=== PATIENT | female | born 1965 | race Caucasian/White ===

== ENCOUNTER 2017-04-10 15:28 | Emergency (ER) | payer OTHER ==
[~2017-04-10] VITALS: Ht 162.6 cm; Wt 71.8 kg
[2017-04-10 15:34] VITALS: TEMP 36.8; Ht 162.6 cm; Wt 71.8 kg
[2017-04-10 15:52] VITALS: O2SAT 97
--- NOTE | 2017-04-10 15:56 | EMERGENCY ROOM VISIT NOTE ---
History Report prepared by Paras: Nicol Almaguer Under the Supervision of: Dr. Nicolasa Pierre D.O. First contact with patient: 15:46 Chief Complaint: TACHYCARDIA Stated Complaint: TACHYCARDIA, HBP, HIGH HEART RATE Nursing Triage Summary: Pt reports high blood pressure and tachycardia since this morning. Pt has a history of tachycardia. Denies chest pain. SOB. Pt takes Cozaar History of Present Illness The patient is a 51 year old female who presents to the Emergency Room with complaints of resolved tachycardia beginning this morning. The patient states that this morning she began experiencing tachycardia and hypertension. The patient also experienced shortness of breath. She tried to get these symptoms under control with deep relax breathing. She notes that she takes Cozaar and did take it this morning. Her heart rate was 143 and her blood pressure was 220/ 100 before going to [facility] At [email or web address] her heart rate and blood pressure were still elevated. She was referred to ED. The patient has chronic itchy rash for the past few years. Source of History: patient Onset: this morning Position: other (global) Quality: other (tachycardia) Timing: resolved Associated Symptoms: + SOB, + rash Note: The patient has elevated heart rate. Review of Systems See HPI for pertinent positives & negatives. A total of 10 systems reviewed and were otherwise negative. Past Medical & Surgical Medical Problems: (1) Hypertension Family History Patient reports no known family medical history. Social History Smoking Status: Current Every Day Smoker Marital Status: Housing Status: lives with family Occupation Status: employed Current/Historical Medications Scheduled Fluoxetine (Prozac), 20 MG PO DAILY Guanfacine Hcl (Tenex), 1 MG PO DAILY Losartan Potassium (Cozaar), 25 MG PO DAILY Metformin Hcl (Glucophage), 500 MG PO BID Physical Exam Vital Signs Date Time Temp Pulse Resp B/P Pulse Ox O2 Delivery O2 Flow Rate FiO2 04/10/17 17:26 88 16 142/86 96 04/10/17 17:14 96 04/10/17 16:55 97 20 143/89 96 Room Air 04/10/17 15:52 97 Room Air 04/10/17 15:52 97 Room Air 04/10/17 15:36 96 Room Air 04/10/17 15:34 36.8 108 18 154/80 96 Room Air Physical Exam HEENT: Head - normocephalic and atraumatic Pupils are equal, round, and reactive to light. Extraocular eye muscles are intact, and sclera are anicteric. Nose - moist nasal mucosa without discharge. Mouth - moist buccal mucosa. Oropharynx is nonerythematous and there is no tonsillar exudate or edema noted. Neck: Supple; no JVD, nuchal rigidity, cervical lymphadenopathy, or auscultated bruits. Heart: Regular rate and rhythm. There is a normal S1 and S2 with no murmurs, clicks, or gallops appreciated. Lungs: Clear to auscultation bilaterally with no wheezes, rales, or rhonchi. Abdomen: Soft, completely nontender, nondistended, with good bowel sounds. There are no palpable pulsatile masses or hepatosplenomegaly. There is no guarding, rigidity, or rebound noted. Extremities: No evidence of cyanosis, clubbing, or edema. There are easily palpable peripheral pulses. Skin: warm and dry with good turgor. Papular lesions on extremities. Medical Decision & Procedures ER Provider Diagnostic Interpretation: X-ray results as stated below per interpretation by me and the radiologist: CHEST ONE VIEW PORTABLE CLINICAL HISTORY: eval for tachycardia cardiac arrhythmia COMPARISON STUDY: No previous studies for comparison. FINDINGS: The bones soft tissues and hemidiaphragms are normal. The cardiomediastinal silhouette is normal. The lungs are clear. The pulmonary vasculature is normal. IMPRESSION: Negative chest. Electronically signed by: Chaparro Cuellar M.D. 04/10/2017 4:18 PM Dictated Date/Time: 04/10/2017 4:17 PM Laboratory Results 04/10/17 16:08 04/10/17 16:08 Test 04/10/17 16:08 Red Blood Count 4.60 M/uL (4.2-5.4) Mean Corpuscular Volume 89.3 fL (80-100) Mean Corpuscular Hemoglobin 30.7 pg (25-34) Mean Corpuscular Hemoglobin Concent 34.3 g/dl (32-36) RDW Standard Deviation 41.6 fL (36.4-46.3) RDW Coefficient of Variation 12.8 % (11.5-14.5) Mean Platelet Volume 11.2 fL (7.4-10.4) Anion Gap 9.0 mmol/L (3-11) Est Creatinine Clear Calc Drug Dose 81.0 ml/min Estimated GFR () 99.8 Estimated GFR (Non- 86.1 BUN/Creatinine Ratio 14.4 (10-20) Calcium Level 8.6 mg/dl (8.5-10.1) Total Bilirubin 0.2 mg/dl (0.2-1) Aspartate Amino Transf (AST/SGOT) 12 U/L (15-37) Alanine Aminotransferase (ALT/SGPT) 27 U/L (12-78) Alkaline Phosphatase 92 U/L (45-117) Total Creatine Kinase 66 U/L (26-192) Creatine Kinase MB 1.0 ng/ml (0.5-3.6) Creatine Kinase MB Ratio 1.5 (0-3.0) Troponin I < 0.015 ng/ml (0-0.045) Total Protein 7.2 gm/dl (6.4-8.2) Albumin 3.6 gm/dl (3.4-5.0) Globulin 3.6 gm/dl (2.5-4.0) Albumin/Globulin Ratio 1.0 (0.9-2) Thyroid Stimulating Hormone (TSH) 1.710 uIu/ml (0.300-4.500) Laboratory results per my review. ECG Indication: tachycardia Rate (beats per minute): 99 Rhythm: normal sinus Findings: no acute ischemic change, no ectopy ED Course 1548: Past medical records reviewed. The patient was evaluated in room A10. A complete history and physical exam was performed. A twelve-lead EKG was obtained as described above. An IV lock was initiated and labs were drawn as above. 1706: I talked with the patient about her test results. She is not surprised by the elevated blood sugar levels. Her friend made her PCP appointment for the . Her blood pressure and heart rate are normal at this time. 1713: Upon reevaluation, the patient is hemodynamically stable. I discussed findings and results with her. She verbalized agreement of the treatment plan. She was discharged home. Medical Decision The patient is a 51 year old female who presents to the ED with tachycardia. Differential diagnosis includes uncontrolled hypertension, medication non compliance, anxiety, exacerbation of tachycardia. Lab findings include: normal white blood cell count, stable H&H, normal TSH, normal renal function and LFT, negative cardiac ischemia enzymes, blood glucose 275. The patient has a history of tachycardia and hypertension. She does admit to being under increased stress secondary to the anniversary of her 's . Patient was noted to be significantly hyperglycemic. She has not been to her primary care physician in greater than 1 year. I recommended close follow-up with a PCP. Her friend has made her an appointment with a different doctor on April 19. She will need close following for her blood pressure and possible adjustment of her blood pressure medications for the associated tachycardia. Also, the patient may need additional antihyperglycemic's or possibly insulin. The patient seemed to understand this. Impression Primary Impression: Diabetes mellitus with hyperglycemia Additional Impression: Tachycardia Scribe Attestation The scribe's documentation has been prepared under my direction and personally reviewed by me in its entirety. I confirm that the note above accurately reflects all work, treatment, procedures, and medical decision making performed by me. Departure Information Dispostion Home / Self-Care Referrals Ruiz Roe M.D. (PCP) Forms HOME CARE DOCUMENTATION FORM, IMPORTANT VISIT INFORMATION, WORK / SCHOOL INSTRUCTIONS Patient Instructions Hypertension Control, My [facility] [place] [employer] Additional Instructions Rest. Limit stress and anxiety. Keep a log of your BP and Blood sugar. Follow up with new PCP on April 19. Limit high salt foods and carbohydrates. Return to the ER if symptoms worsen. Problem Qualifiers
--- NOTE | 2017-04-10 16:19 | DIAGNOSTIC IMAGING REPORT ---
CHEST ONE VIEW PORTABLE CLINICAL HISTORY: eval for tachycardia cardiac arrhythmia COMPARISON STUDY: No previous studies for comparison. FINDINGS: The bones soft tissues and hemidiaphragms are normal. The cardiomediastinal silhouette is normal. The lungs are clear. The pulmonary vasculature is normal. IMPRESSION: Negative chest. Electronically signed by: Chaparro Cuellar M.D. 04/10/2017 4:18 PM Dictated Date/Time: 04/10/2017 4:17 PM
[2017-04-10 16:20] LABS: HEMATOCRIT 41.1 % (37-47); MEAN CELL VOLUME 89.3 fL (80-100); MEAN CORPUSCULAR HEMOGLOBIN 30.7 pg (25-34); MEAN CORPUSCULAR HGB CONC 34.3 g/dl (32-36); MEAN PLATELET VOLUME 11.2 fL (7.4-10.4); PLATELET COUNT 359 K/uL (130-400); WHITE BLOOD COUNT 8.84 K/uL (4.8-10.8)
[2017-04-10] MEDS ORDERED: GUAN1TAB PO (16:28)
[2017-04-10] MEDS ORDERED: FLUO20CA35 PO (16:28)
[2017-04-10] MEDS ORDERED: LOSA25TA18 PO (16:28)
[2017-04-10] MEDS ORDERED: GLC/500 PO (16:28)
[2017-04-10 16:38] LABS: ALT/SGPT 27 U/L (12-78); AST/SGOT 12 U/L (15-37); BLOOD UREA NITROGEN 11 mg/dl (7-18); BUN/CREATININE RATIO 14.4 (10-20); CALCIUM 8.6 mg/dl (8.5-10.1); CARBON DIOXIDE 27 mmol/L (21-32); CHLORIDE 105 mmol/L (98-107); CREATININE 0.79 mg/dl (0.60-1.20); GLUCOSE 275 mg/dl (70-99); POTASSIUM 3.8 mmol/L (3.5-5.1); SODIUM 141 mmol/L (136-145)
[2017-04-10 16:49] LABS: ALKALINE PHOSPHATASE 92 U/L (45-117); CKMB/CK RATIO 1.5 (0-3.0)
[2017-04-10 17:26] VITALS: BP 142/86; PULSE 88; O2SAT 96
== END 2017-04-10 17:27 | disposition home or self-care (01) ==
LOC: C.EDB 15:30 → C.EDA 17:27
DX: E11.65 Type 2 diabetes mellitus with hyperglycemia (principal); R00.0 Tachycardia, unspecified; I10 Essential (primary) hypertension; F17.200 Nicotine dependence, unspecified, uncomplicated; Z79.84 Long term (current) use of oral hypoglycemic drugs; Z79.899 Other long term (current) drug therapy